=== PATIENT | male | born 1960 | race Caucasian/White ===

== ENCOUNTER 2021-07-18 21:02 | Observation (INO) | payer OTHER ==
[~2021-07-18] VITALS: Ht 185.4 cm; Wt 88.0 kg
[2021-07-18 22:01] LABS: HEMOGLOBIN 12.8 gm/dl (14.0-17.5); RED BLOOD COUNT 4.03 M/UL (4.20-5.50)
[2021-07-19] MEDS ORDERED: ATORVASTATIN CA20 MG PO (04:58)
[2021-07-20 06:28] LABS: HEMOGLOBIN 10.8 gm/dl (14.0-17.5); RED BLOOD COUNT 3.46 M/UL (4.20-5.50); WHITE BLOOD COUNT 4.2 K/UL (4.5-11.0)
[2021-07-20 06:48] LABS: BUN/CREATININE RATIO 17 (0-10)
[2021-07-20] MEDS ORDERED: LISINOPRIL20 MG PO (08:39)
[2021-07-20] MEDS ORDERED: ZOFRAN 4 MG TAB4 MG PO (08:59)
== END 2021-07-20 11:34 | disposition home or self-care (01) ==
LOC: ER1 21:02 → CDU 07-19 01:57 → M/S 07-19 01:57
PROVIDERS: Physician Assistant; Physician Assistant Medical; ADMIT Internal Medicine
DX: I95.9 Hypotension, unspecified (principal); N17.0 Acute kidney failure with tubular necrosis; E11.9 Type 2 diabetes mellitus without complications; I10 Essential (primary) hypertension; D64.9 Anemia, unspecified; F10.10 Alcohol abuse, uncomplicated; N28.1 Cyst of kidney, acquired; R94.31 Abnormal electrocardiogram [ECG] [EKG]; Z20.822 Contact with and (suspected) exposure to COVID-19; Z88.0 Allergy status to penicillin; Z79.84 Long term (current) use of oral hypoglycemic drugs
CPT/HCPCS: 36415; 71045; 80048; 80053; 80307; 81001; 82272; 82550; 82553; 82570; 82607; 82746; 83540; 83550; 83605; 83735; 83880; 83930; 83935; 84133; 84156; 84300; 84439; 84443; 84484; 85025; 85027; 86140; 93005; 96372; 96374; 96375; 96376; 99285; C9113; G0378; J1650; J2405; J2550; J7030; P9047; U0002